=== PATIENT | female | born 1990 | race Caucasian/White ===

== ENCOUNTER → 2016-12-09 | Outpatient (CLI) | payer MEDICAID ==
[2015-05-19 13:53] VITALS: BP 103/78
[~2016-12-09] MED LIST: ATIVAN0.5 MG PO; FIORICET1 CAP PO; VITAMIN B122500 MC1
== END ==
LOC: LAB 09:32
DX: G43.509 Persistent migraine aura without cerebral infarction, not intractable, without status migrainosus (principal); R51 Headache; Z33.1 Pregnant state, incidental

== ENCOUNTER → 2017-05-10 | Outpatient (CLI) | payer MEDICAID ==
[2015-05-19 13:53] VITALS: BP 103/78
[2017-05-10 14:46] LABS: ALBUMIN 3.9 g/dL (3.5-5.0); BUN/CREATININE RATIO 17.1 (6.0-26.0); CALCIUM 9.4 mg/dL (8.4-10.2); POTASSIUM 4.2 mmol/L (3.6-5.0); TOTAL BILIRUBIN 0.9 mg/dL (0.2-1.3); TOTAL PROTEIN 7.3 g/dL (6.3-8.2)
== END ==
LOC: LAB 14:12
PROVIDERS: Internal Medicine
DX: G43.509 Persistent migraine aura without cerebral infarction, not intractable, without status migrainosus (principal); E53.8 Deficiency of other specified B group vitamins; K90.49 Malabsorption due to intolerance, not elsewhere classified; Z33.1 Pregnant state, incidental

== ENCOUNTER 2017-06-06 12:59 | Emergency (ER) | payer MEDICAID ==
[~2017-06-06] VITALS: Ht 165.1 cm; Wt 104.5 kg
[2017-06-06] MEDS ORDERED: KLONOPIN 1MG1 MG PO (13:09)
[2017-06-06] MEDS ORDERED: FLUOXETINE HCL10 MG PO (13:09)
[2017-06-06] MEDS ORDERED: NORCO 325 MG-51 TA1 PO (14:16)
[2017-06-06] MEDS ORDERED: VALIUM5 M1 PO (14:16)
[2017-06-06 15:25] VITALS: BP 102/62
== END 2017-06-06 15:25 | disposition home or self-care (01) ==
LOC: ED 12:59
DX: R51 Headache (principal); G25.81 Restless legs syndrome; E53.8 Deficiency of other specified B group vitamins; Z87.891 Personal history of nicotine dependence; G43.909 Migraine, unspecified, not intractable, without status migrainosus; R11.0 Nausea; H53.9 Unspecified visual disturbance
CPT/HCPCS: J1200; J2405; J3030; J7030

== ENCOUNTER 2017-06-07 09:47 | Emergency (ER) | payer MEDICAID ==
[~2017-06-07] VITALS: Ht 165.1 cm; Wt 104.5 kg
[~2017-06-07 09:47] MED LIST changes: +FLUOXETINE HCL10 MG PO; +KLONOPIN 1MG1 MG PO; +NORCO 325 MG-51 TA1 PO; +VALIUM5 M1 PO
[2017-06-07 11:04] LABS: EOS # 0.2 (0.04-0.40); EOS % 2.6 % (1.0-5.0); HEMATOCRIT 39.9 % (37.0-47.0); LYMPH# 2.1 (1.50-4.00); MEAN CELL VOLUME 94 fl (78-100); MEAN CORPUSCULAR HEMOGLOBIN 31 pg (27-31); MEAN CORPUSCULAR HGB CONC 33 g/dL (33-37); MEAN PLATELET VOLUME 10.7 fl (7.4-10.4); MONO # 0.4 (0.20-0.80); PLATELET COUNT 282 K/mm3 (130-400); RED BLOOD COUNT 4.23 M/mm3 (4.10-5.30); WHITE BLOOD COUNT 5.7 K/mm3 (4.8-10.8)
[2017-06-07 11:12] LABS: ALBUMIN 4.1 g/dL (3.5-5.0); BUN/CREATININE RATIO 15.4 (6.0-26.0); CALCIUM 9.5 mg/dL (8.4-10.2); POTASSIUM 4.7 mmol/L (3.6-5.0); TOTAL BILIRUBIN 0.8 mg/dL (0.2-1.3); TOTAL PROTEIN 7.1 g/dL (6.3-8.2)
[2017-06-07 12:40] VITALS: BP 124/86
== END 2017-06-07 12:28 | disposition home or self-care (01) ==
LOC: ED 09:47
PROVIDERS: Physician Assistant
DX: G43.909 Migraine, unspecified, not intractable, without status migrainosus (principal); F41.9 Anxiety disorder, unspecified; G25.81 Restless legs syndrome; Z87.891 Personal history of nicotine dependence
CPT/HCPCS: J1100; J2765; J7120

== ENCOUNTER → 2017-08-08 | Outpatient (CLI) | payer MEDICAID ==
[2017-08-08 17:46] LABS: EOS # 0.2 (0.04-0.40); HEMATOCRIT 39.7 % (37.0-47.0); HEMOGLOBIN 12.9 g/dL (12.5-16.0); LYMPH# 2.2 (1.50-4.00); MEAN CELL VOLUME 93 fl (78-100); MEAN CORPUSCULAR HEMOGLOBIN 30 pg (27-31); MEAN CORPUSCULAR HGB CONC 33 g/dL (33-37); MONO # 0.4 (0.20-0.80); NEU # 3.1 (1.40-6.50); PLATELET COUNT 261 K/mm3 (130-400); RED BLOOD COUNT 4.27 M/mm3 (4.10-5.30); RED CELL DISTRIBUTION WIDTH 13.2 % (11.5-14.5)
[2017-08-08 17:53] LABS: ALBUMIN 4.1 g/dL (3.5-5.0); BUN/CREATININE RATIO 15.6 (6.0-26.0); POTASSIUM 4.1 mmol/L (3.6-5.0); TOTAL BILIRUBIN 0.4 mg/dL (0.2-1.3); TOTAL PROTEIN 7.3 g/dL (6.3-8.2)
[2017-08-08 19:03] LABS: ERYTHROCYTE SEDIMENTATION RATE 9 mm/hr (0-20)
[2017-08-09 14:16] LABS: FOLATE (FOLIC ACID) 13.3 ng/mL (7.0-31.4)
== END ==
LOC: LAB 17:11
PROVIDERS: Internal Medicine
DX: K90.9 Intestinal malabsorption, unspecified (principal); R20.2 Paresthesia of skin; G43.509 Persistent migraine aura without cerebral infarction, not intractable, without status migrainosus; F33.1 Major depressive disorder, recurrent, moderate

== ENCOUNTER → 2017-08-10 | Outpatient (CLI) | payer MEDICAID ==
[2017-08-13 07:22] LABS: VITAMIN B1 116 nmol/L (70-180)
== END ==
LOC: LAB 12:12
PROVIDERS: Internal Medicine
DX: K90.9 Intestinal malabsorption, unspecified (principal); R20.2 Paresthesia of skin; G43.509 Persistent migraine aura without cerebral infarction, not intractable, without status migrainosus; F33.1 Major depressive disorder, recurrent, moderate; Z88.5 Allergy status to narcotic agent; Z88.8 Allergy status to other drugs, medicaments and biological substances; Z91.041 Radiographic dye allergy status

== ENCOUNTER → 2020-12-09 | Outpatient (CLI) | payer BC ==
[2020-12-09 12:41] LABS: BASO # 0.01 (0.02-0.10); EOS # 0.13 (0.04-0.40); EOS % 1.9 % (1.0-5.0); HEMATOCRIT 38.3 % (37.0-47.0); HEMOGLOBIN 12.4 g/dL (12.5-16.0); LYMPH# 2.14 (1.50-4.00); MEAN CELL VOLUME 95 fl (78-100); MEAN CORPUSCULAR HEMOGLOBIN 31 pg (27-31); MEAN CORPUSCULAR HGB CONC 32 g/dL (33-37); MEAN PLATELET VOLUME 9.9 fl (7.4-10.4); MONO # 0.36 (0.20-0.80); NEU # 4.19 (1.40-6.50); PLATELET COUNT 271 K/mm3 (130-400); RED BLOOD COUNT 4.02 M/mm3 (4.10-5.30); RED CELL DISTRIBUTION WIDTH 12.4 % (11.5-14.5); WHITE BLOOD COUNT 6.8 K/mm3 (4.8-10.8)
[2020-12-09 12:51] LABS: POTASSIUM 4.1 mmol/L (3.5-5.1)
[2020-12-09 12:52] LABS: ALBUMIN 4.2 g/dL (3.5-5.0)
[2020-12-09 12:53] LABS: CALCIUM 9.5 mg/dL (8.3-10.5)
[2020-12-09 12:54] LABS: TOTAL PROTEIN 7.1 g/dL (6.4-8.3)
== END ==
LOC: LAB 12:22
PROVIDERS: Internal Medicine
DX: Z00.00 Encounter for general adult medical examination without abnormal findings (principal)

== ENCOUNTER → 2021-03-17 | Outpatient (CLI) | payer BC ==
[2021-03-17 12:51] LABS: BASO # 0.02 (0.02-0.10); EOS # 0.14 (0.04-0.40); EOS % 2.5 % (1.0-5.0); HEMATOCRIT 40.8 % (37.0-47.0); HEMOGLOBIN 13.2 g/dL (12.5-16.0); LYMPH# 1.87 (1.50-4.00); MEAN CELL VOLUME 96 fl (78-100); MEAN CORPUSCULAR HEMOGLOBIN 31 pg (27-31); MEAN CORPUSCULAR HGB CONC 32 g/dL (33-37); MEAN PLATELET VOLUME 11.2 fl (7.4-10.4); MONO # 0.38 (0.20-0.80); NEU # 3.27 (1.40-6.50); PLATELET COUNT 232 K/mm3 (130-400); RED BLOOD COUNT 4.27 M/mm3 (4.10-5.30); RED CELL DISTRIBUTION WIDTH 12.8 % (11.5-14.5); WHITE BLOOD COUNT 5.7 K/mm3 (4.8-10.8)
[2021-03-17 12:58] LABS: ALBUMIN 4.1 g/dL (3.5-5.0); POTASSIUM 4.2 mmol/L (3.5-5.1)
[2021-03-17 13:00] LABS: CALCIUM 9.8 mg/dL (8.3-10.5)
[2021-03-17 13:03] LABS: TOTAL BILIRUBIN 1.3 mg/dL (0.2-1.2)
== END ==
LOC: LAB 12:31
PROVIDERS: Internal Medicine
DX: K90.9 Intestinal malabsorption, unspecified (principal)